=== PATIENT | male | born 1970 | race Caucasian/White ===

== ENCOUNTER 2021-08-21 09:46 | Day surgery (SDC) | payer OTHER, SELFPAY ==
[2021-08-21] MEDS: Lactated Ringers 1,000 ML 100 ML IV (10:00)
[2021-08-21 10:34] VITALS: BP 122/78; PULSE 66; RESP 16; TEMP 36.9; O2SAT 96; BMI 23.6
--- NOTE | 2021-08-21 11:24 | HP.PCM_ITS ---
History and Physical Date of Admission: 08/21/21 HISTORY AND PHYSICAL ? Jermaine Horton 1970 ? ? REFERRING PHYSICIAN: Kyree Graham MD ? CHIEF COMPLAINT: Consult (Consult inguinal hernia) ? HPI: Jermaine is a 51 year old male with a complaint of a bulge in his left inguinal region. The patient notes discomfort in this area with lifting. The symptoms have maintained, over the past 16 months. ? Dr. Robbins performed an open left inguinal hernia repair on him in the past. ? The patient notes no symptoms of bowel obstruction and denies nausea or vomiting. The patient was seen by his primary care physician who felt the patient has a hernia. Jermaine was referred for evaluation and treatment. ? The patient is being seen by me today at the request of Dr. Kyree Graham MD for my opinion and advice regarding Unilateral recurrent inguinal hernia without obstruction or gangrene Screening for colon cancer. ? ? PAST MEDICAL HISTORY PAST MEDICAL HISTORY Diagnosis Date ? Fracture cervical vertebra-closed (HCC) 1990 ? C6-7 and T1 ? Hyperlipidemia ? ? Seasonal allergies ? ? Urinary calculus, unspecified 2002 ? Renal stones ? ? PAST SURGICAL HISTORY PAST SURGICAL HISTORY Procedure Laterality Date ? PAST SURGICAL HISTORY OF ? 10/24/1990 ? cervical fusion with bone graft ? REPAIR ING HERNIA,5+Y/O,REDUCIBL Left ? CURRENT MEDICATIONS Current Outpatient Medications Medication Sig ? multivitamin tablet Take 1 tablet by mouth once daily. ? No current facility-administered medications for this visit. ? ? ALLERGIES: Latex and Penicillins ? PERSONAL HISTORY: SOCIAL HISTORY Social History ? Tobacco Use ? Smoking status: Never Smoker ? Smokeless tobacco: Never Used Substance Use Topics ? Alcohol use: Yes ? ? Comment: occasional weekend ? Drug use: No ? FAMILY HISTORY: FAMILY HISTORY FAMILY HISTORY Problem Relation Age of Onset ? None Mother ? ? Arthritis Mother ? ? Coronary Artery Disease Father ? ? Diabetes Father ? ? Heart Father ? ? CHF ? Hypertension Father ? ? Coronary Artery Disease Paternal Grandmother ? ? Heart Paternal Grandmother ? ? CHF ? Hypertension Paternal Grandmother ? ? ? REVIEW OF SYMPTOMS: The review of systems data was entered by the nurse and reviewed by me ? Nursing Notes: Sagrario Barrett LPN 07/14/2021 9:46 AM Signed REVIEW OF SYSTEMS: General: The patient denies fatigue, denies weight loss, denies weight gain, denies feeling hot, and denies feelings of cold. Eyes: The patient denies glaucoma, denies eye injury/surgery, wears glasses or contacts. Ear/Nose/Throat: The patient NOTES allergies, denies hayfever, denies ear infections, and denies bloody noses. Cardiovascular: The patient denies chest pain, denies heart disease, denies high blood pressure,denies cardiac stent, denies prior heart attack, denies irregular heart beat, NOTES high cholesterol, denies poor circulation, denies heart failure, other cardiac issues, denies claudication, denies cold feet, denies peripheral arterial stent. Respiratory: The patient denies tuberculosis, denies pneumonia, denies frequent cough, denies pulmonary embolism, denies shortness of breath, and denies coughing up blood. Gastrointestinal: The patient denies difficulty swallowing, denies acid reflux, denies ulcers, denies vomiting, denies jaundice/hepatitis, denies gall bladder problems, denies black or tarry stools, denies hemorrhoids, denies bleeding from rectum, denies diverticulitis, denies constipation, denies diarrhea, denies loss of stool control, and denies hernias. Kidney/Bladder: The patient NOTES kidney stones, denies urine infections, and denies bloody urine. Skin: The patient denies a history of skin cancer, denies bleeding/changing moles, and denies a history of skin rash. Neurologic: The patient denies a history of epilepsy/convulsions, denies headaches, denies head/spinal injuries, and denies stroke/TIA. Psychiatric: The patient denies psychiatric medications, denies depression, and denies voices, denies substance abuse. Endocrine: The patient denies thyroid disorders, denies diabetes, and denies hormonal problems. Hematologic: The patient denies a history of bruising, denies bleeding, and denies anemia, denies blood clots. Infections: The patient denies a history of measles and mumps, denies r heumatic fever, and denies sexually transmitted diseases. Musculoskeletal: The patient NOTES back pain/injury, NOTES back problems, denies sciatica, denies knee/foot trouble, denies arthritis, or denies gout. ? ? When was patient's last Mammogram screening? N/A ? Last Colonoscopy: Unknown ? Sagrario Barrett LPN ? PHYSICAL EXAMINATION: ? General: The patient is 51 year old male, well nourished, well hydrated in no acute distress. The patient is oriented to time, place, and person. ? VITALS: Pulse 72, temperature 36.7 ?C (98 ?F), height 185.4 cm (6' 1), weight 81.8 kg (180 lb 6.4 oz), SpO2 98 %. Body mass index is 23.8 kg/m?. ? HEENT: Normal cephalic, ataumatic, pupils are equally round, sclera are anicteric, mucous membranes are moist, oropharynx is clear. Neck has no masses, asymmetry or lymphadenopathy. Thyroid is unremarkable. ? Respiratory: Clear to auscultation and percussion. Normal respiratory excursion and pattern. ? Cardiac: Examination is regular rate and rhythm. ? Abdominal exam: Soft, nontender, with no palpable masses. No hepatosplenomegaly. A moderate reducible left inguinal hernia, no right inguinal or umbilical hernias are noted ? Rectal exam: exam deferred ? Extremities: no clubbing, cyanosis or edema. No adenopathy. ? Other: ? ? LABORATORY VALUES: As Noted ? RADIOLOGIC STUDIES: As Noted ? Assessment IMPRESSION: left inguinal hernia ? PLAN: My plan is to perform a robotic assisted laparoscopic left inguinal hernia repair with mesh. The planned surgical procedure was discussed extensively with the patient. The risks, benefits, anticipated outcomes and possible complications were mentioned. Jermaine holbrookands that all hernia repair surgery has a chance of recurrence and/or chronic post operative pain. My staff has also explained the procedure in understandable terms and the patient was given the option to take printed material concerning the planned procedure. The patient had the opportunity to ask questions concerning the planned procedure. The patient freely consents to the planned procedure. ? My findings have been communicated to Dr. Kyree Graham MD via shared medical record. This note will be forwarded to Dr. Kyree Graham MD. ? Diagnoses: (K40.91) Unilateral recurrent inguinal hernia without obstruction or gangrene (Z12.11) Screening for colon cancer ? Anticipated CPT Code: laparoscopic left inguinal hernia repair with mesh - 82824-528 ? Anticipated Anesthetic: General ? Patient weight: Pulse 72, temperature 36.7 ?C (98 ?F), height 185.4 cm (6' 1), weight 81.8 kg (180 lb 6.4 oz), SpO2 98 %. BMI: Body mass index is 23.8 kg/m?. ? Planned antibiotic: clindamycin 900mg IVPB industrial technology education teacher to [place] ? SCDs needed - Yes Return to Clinic: The patient is instructed to follow-up with me 1 week post operatively. ? COVID (Procedure Consent) Procedure Criteria ? Procedure Criteria: Yes Elective The surgeon/proceduralist and patient have discussed in detail the risk of exposure to and/or potential harm posed by the COVID-19 virus with having a surgery/procedure at this time versus the risk of? delaying the surgery/procedure. It is not possible to know either the risk of delaying the surgery or procedure or chance of getting an infection with perfect accuracy, but a joint decision was made between the patient and the surgeon/proceduralist ?to proceed at this time with the scheduled s urgery/procedure as indicated on the consent form. ? ? Dominic Kaur III, MD .I have re-examined the patient. There are no clinical changes since date of exam.
[2021-08-21] MEDS: Bupivacaine Mpf 0.5% 30 ML VIAL (13:20)
--- NOTE | 2021-08-21 13:30 | OP.PCM_ITS ---
Problems Associated Problem List Diagnoses (1) Recurrent unilateral inguinal hernia: Report of Operation Date of Procedure: 08/21/21 Pre-Operative Diagnosis: Recurrent left inguinal hernia Post-Operative Diagnosis: Same Surgery/Procedure Performed:: Robotically assisted laparoscopic repair of recurrent left inguinal hernia Surgeon: Dominic Kaur six pack loader operator: Diane Petersen Type of Anesthesia: General Anesthesiologist: Oscar Sharif Estimated Blood Loss (mL): < 25 cc Description of Procedure: Patient was brought into the operating room. Placed in the supine position. Under excellent general anesthetic the abdomen was sterilely prepped and draped in usual fashion. Local was injected supraumbilically dissection was carried down to the fascia the fascia grasped with Olga varies needle was placed inside the abdomen the abdomen was insufflated to 15 torr. #8 trocar was placed without difficulty. It was flank by 2 other #8 trochars both placed under direct visualization. There was no injury to underlying structures. Patient was placed in the headdown. X I robot was brought in and docked appropriately. Grasper was placed in the left hand mariella were placed in the right hand. I scored the peritoneum on the left side a very large recurrent hernia was identified. I came down to the pubic tubercle then came laterally dissected the mesh off of the plug. He had a lot of oozing with this and I did not feel comfortable removing the mesh for fear of getting into some significant bleeding in the muscle so I left it. I brought the hernia sac all the way down it traveled all the way down into the scrotum. I dissected further laterally and inferiorly. I fashioned a medium ProGrip mesh into the wound it laid completely flat and was actually quite nice. The defect had excellent coverage. I would closed the peritoneum with a 3 OV lock. I had a mesenteric rent in the peritoneum I closed that also with a V-Loc covering the mesh completely so it would not be exposed to any bowel. Trochars were removed under direct visualization good with stasis was noted. Skin incisions were closed with subcuticular stitches of 4-0 Monocryl. Steri-Strips were applied sterile dressings were applied and the patient tolerated the procedure well. Admit VTE Documentation VTE Present on Admission: No VTE Mechan Device Prophylaxis: SCD's VTE Pharm Prophylaxis ordered?: No Reason prophylaxis not ordered:: Treatment Not Indicated
--- NOTE | 2021-08-21 13:30 | EX.PCM.DISCH ---
Discharge Instructions Procedure Hernia Diet Discharge Diet: Light diet - advance as tolerated Activity Discharge Activity: Return to Normal Activity, May Drive (when you are no longer taking narcotic pain medications.) and May Shower (with the bandage in place 1-2 days after surgery.) Lifting Restrictions: 20 pounds for 8 weeks. Additional Activity Instructions:: Climbing stairs is fine, walking is encouraged. Sitting in bed may be uncomfortable. Sitting up using your lateral muscles (sitting up sideways) is usually more comfortable. Do not drive, work heavy equipment of sign legal documents for 24 hours. If your hernia repair was an ingunial repair, you may have scrotal swelling, an ice pack and/or athletic support can provide more comfort. Pain medications may cause nausea, you should typically eat light foods as you take your pain medications. Pain medications may also cause constipation. If you have difficulty with this, discuss with your doctor. Dressing / Incision Call your doctor if your incision/area has: Continuous Slow Oozing, Sudden Increased Bleeding, Increased Pain/ Swelling, Increased Redness and Foul Smelling Discharge Call your doctor if you observe: Fever of 101 or Higher Suture Line Care: Avoid Pulling/Pushing and Avoid Pinching/Bending Additional Dressing/Incision Instructions:: Leave the operative bandage on for 2-3 days. When you remove the bandage, leave the steri-strips on place until your follow up appointment or they fall off. Follow Up Care Please Follow Up With: Mohini Marquez PA-C When: Call office to schedule an appointment to be seen in 7 days. Test Results: Test results from this visit will be discussed in further detail at your follow-up appointment, if applicable. Discharge Plan Admission Attending Provider: Domiinc Kaur Primary Care Provider: Kyree Graham Discharge Orders/Prescriptions Prescriptions: New oxycodone-acetaminophen [Endocet] 5-325 mg tablet 1 tab PO Q6H PRN (Reason: pain) 5 Days Qty: 20 RF: 0 Continued multivitamin Tablet 1 tab PO DAILY RF: 0 Other Ambulatory Orders: 12 Lead EKG (Routine) Timeframe: [id number] Facility: [facility] - Location: Cardiovascular Services Ordered By: Dr. Levi Bryant Referrals / Follow Up: Kyree Graham MD [Primary Care Provider] - Mohini Marquez PA-C [PHYSICIAN JUNIOR LEGAL SECRETARY] - Disposition Disposition (needs filled in before D/C Order can be placed): Home, Self Care
[2021-08-21 13:32] VITALS: BP 122/78; BP 123/90; PULSE 80; RESP 16; TEMP 36.4; O2SAT 98
[2021-08-21 13:45] VITALS: BP 122/78; BP 133/89; PULSE 71; RESP 16; O2SAT 98
[2021-08-21 13:59] VITALS: BP 113/76; BP 122/78; PULSE 64; RESP 16; TEMP 36.1; O2SAT 95
[2021-08-21 15:16] VITALS: BP 104/67; BP 122/78; PULSE 65; RESP 16; TEMP 36.4; O2SAT 96
--- NOTE | 2021-08-27 09:11 | EKG12_ITS ---
Test Reason : PREOP Blood Pressure : / mmHG Vent. Rate : 064 BPM Atrial Rate : 064 BPM P-R Int : 128 ms QRS Dur : 082 ms QT Int : 400 ms P-R-T Axes : -05 018 007 degrees QTc Int : 412 ms Normal sinus rhythm Septal infarct , age undetermined Abnormal ECG Confirmed by YANET WELLS, LEVY ([id number]), story editor CHERIE HENNESSY ([id number]) on 08/27/2021 9:12:37 AM Referred By: Dominic Kaur Confirmed By:LEVY HOLT MD
== END 2021-08-21 15:22 | disposition home or self-care (01) ==
LOC: SDC 09:49 → AC 09:52
PROVIDERS: PCP Family Medicine; Referring Provider Surgery; Visit Provider Surgery
PROC: 0YQ64ZZ Repair Left Inguinal Region, Percutaneous Endoscopic Approach (ICD-10-PCS; CPT 49651; principal; 2021-08-21 11:40)
DX: K40.91 Unilateral inguinal hernia, without obstruction or gangrene, recurrent (principal); E78.5 Hyperlipidemia, unspecified
CPT/HCPCS: 00840; 49651; S2900; 93005; J7120; J2405

== ENCOUNTER 2022-07-11 11:20 | Emergency (ER) | payer OTHER, SELFPAY ==
[2022-07-11 11:21] VITALS: BP 140/88; PULSE 87; RESP 16; TEMP 36.5; O2SAT 97; BMI 23.7
[2022-07-11 11:44] VITALS: BP 140/88; PULSE 87; RESP 16; TEMP 36.5; O2SAT 97
--- NOTE | 2022-07-11 11:53 | EX.ED.GUMALE ---
HPI History of Present Illness Chief Complaint: Flank Pain Narrative Narrative: 52-year-old male with with history of kidney stones in the past presenting with bilateral flank pain. He states this started a couple of days ago when he was working in the sun and he felt chills on his back. Patient states he developed body aches. He states he immediately felt like it was kidney stones that he had not had in 20 years. He went to the urgent care and had a urinalysis completed which showed blood in the urine without overwhelming evidence of infection. Patient was sent for ultrasound of the kidneys, ureters, bladder and this was normal and showed no stones or evidence of pyelonephritis. Patient was placed on Macrobid and Pyridium and has been taking this. He has not had dysuria or hematuria. Initially had urinary frequency and he was not drinking a ton of water. He states that since that time he has been drinking a lot of water and a lot of cranberry juice. He has been tested for COVID 4 times this week. His highest fever was 103.5. He has taken Tylenol and ibuprofen and this does help with the fever. He currently is pain-free and nausea free. He does not have any diarrhea or constipation. He does state he has a very mild cough but is not short of breath or having chest pain. [facility] Medical History Alcohol use Injury of head and neck Wears glasses Home Medications multivitamin 1 tab PO DAILY 08/14/21 [History Last Taken Unknown] oxycodone-acetaminophen 5 mg-325 mg tablet (Endocet) 1 tab PO Q6H PRN pain 5 days #20 tabs 08/21/21 [Rx Last Taken Unknown] levofloxacin 750 mg tablet 750 mg PO DAILY #4 tabs 07/11/22 [Rx Last Taken Unknown] Allergy/AdvReac Type Severity Reaction Status Date / Time latex Allergy Other Verified 07/11/22 11:25 Penicillins Allergy Unknown Verified 07/11/22 11:25 Surgical History Hx of inguinal hernia repair Hx of neck surgery Social History Smoking Status: Never smoker ROS ROS ED Constitutional Constitutional ED: Reports chills, fever(s) and sweats Eyes Eyes: Denies change in vision ENT ENT ED: Denies rhinorrhea or sore throat Cardiovascular Cardiovascular: Denies chest pain or palpitations Respiratory/Chest Respiratory/Chest: Reports cough; Denies dyspnea or dyspnea on exertion Gastrointestinal Gastrointestinal: Reports nausea; Denies constipation, diarrhea or vomiting Genitourinary Genitourinary ED: Reports hematuria and urinary frequency Musculoskeletal Musculoskeletal: Reports back pain Integumentary Denies abscess or rash Neurologic Neurologic: Reports headache(s); Denies paresthesias Psychiatric Psychiatric: Denies anxiety or depression EXAM Physical Exam Const Vital Signs: 07/11/22 11:21 07/11/22 11:44 07/11/22 11:44 Temperature 97.7 F L 97.7 F L Temperature Source Temporal Temporal Pulse Rate 87 87 Respiratory Rate 16 16 Respiratory Effort Normal Non-Labored Blood Pressure 140/88 H 140/88 H Blood Pressure Mean 105 105 Pulse Ox 97 97 Oxygen Delivery Method Room Air Room Air Positive well nourished General Appearance ED: NAD; Negative for pallor HEENT Reports moist mucous membranes normocephalic Eyes PERRL and EOMs intact bilaterally General Eye ED: Negative for pale conjunctiva Neck no lymphadenopathy Resp normal respiratory effort and clear to auscultation bilaterally Auscultation: Negative for rales, rhonchi or wheezes Cardio regular rate and regular rhythm GI non-tender, non-distended and no masses Bladder / Kidney Exam: CVA tenderness right and left Back/Spine Back/Spine Narrative: No midline spinal tenderness of the thoracic or lumbar spine. Extremity normal to inspection Neuro oriented x3, CN's II-XII intact bilaterally, moves all extremities, no focal motor deficits and no sensory deficits noted Sensorium / Orientation: alert Motor Exam: strength 5/5 throughout Psych mental status grossly normal Attitude: No agitated Mood & Affect: Negative for anxious or tearful Skin General Skin Exam: Negative for jaundice or pallor MDM MDM MDM Narrative Medical decision making narrative: Patient presenting with chills, body aches, fevers. He is afebrile here. He has no pain here except for some mild CVA tenderness bilaterally. His urinalysis is negative for infection but there is some occult blood. He has a history of kidney stones. CBC and CMP are normal. I obtained a noncontrast CT of the abdomen pelvis to rule out kidney stone even though he is already had ultrasounds of his kidneys, ureters, bladder's. This does not show any acute intra-abdominal process but does identify a left lower lobe pneumonia. This is likely the source of the patient's fevers. I cannot explain why he has the flank pain. Patient will be treated with antibiotics. Return precautions discussed. First dose given in ER. Impression: 1. Left lower lobe pneumonia 2. Febrile illness Lab Data Attestation: I reviewed the patient's lab results. Labs: Laboratory Results - last 24 hr 07/11/22 07/11/22 07/11/22 11:42 11:42 12:04 WBC 7.2 RBC 4.92 Hgb 15.5 Hct 46.5 MCV 94.5 H MCH 31.5 MCHC 33.3 RDW Std Deviation 44.6 H RDW Coeff of Lori 12.9 Plt Count 237 MPV 10.0 Immature Gran % (Auto) 0.400 Neut % (Auto) 75.5 H Lymph % (Auto) 14.8 L [place] % (Auto) 8.2 Eos % (Auto) 0.7 Baso % (Auto) 0.4 Absolute Neuts (auto) 5.4 Absolute Lymphs (auto) 1.06 Nucleated RBC % 0 Sodium 137 Potassium 3.6 Chloride 100 Carbon Dioxide 28.0 Anion Gap 9 BUN 14 Creatinine 0.97 Estim Creat Clear Calc 99.53 Est GFR (MDRD) Af Amer 104 Est GFR (MDRD) Non-Af 86 BUN/Creatinine Ratio 14.4 Glucose 107 H Calcium 9.2 Total Bilirubin 0.50 AST 33 ALT 55 Alkaline Phosphatase 76 Total Protein 7.9 Albumin 3.2 Globulin 4.7 H Albumin/Globulin Ratio 0.7 L Lipase 134 Urine Color Yellow Urine Clarity Sl. Cloudy Urine pH 6.0 Ur Specific [place] 1.020 Urine Protein 30 H Urine Glucose (UA) Normal Urine Ketones 5 H Urine Occult Blood 10 H Urine Nitrite Negative Urine Bilirubin Negative Urine Urobilinogen 1 H Ur Leukocyte Esterase Negative Urine RBC 0 SEEN Urine WBC 0 SEEN Ur Squamous Epith Cells 0 SEEN Amorphous Sediment 1+ Urine Bacteria 0 SEEN Urine Mucus 0 SEEN Radiography Diagnostic Testing: Clinical Impression(s) from Imaging Studies Abdomen/Pelvis CT 07/11/22 12:22 IMPRESSION: 1. No renal or ureteral stone. 2. Left lower lobe pneumonia. Electronically Signed: Tima Bills MD at 12:52 EDT , Discharge Plan Triage Chief Complaint: Flank Pain ED Provider: Rui Yanes Dx/Rx/DC Orders Instructions: ED Pneumonia (Adult) Prescriptions: New levofloxacin 750 mg tablet 750 mg PO DAILY Qty: 4 0RF No Action multivitamin Tablet 1 tab PO DAILY oxycodone-acetaminophen [Endocet] 5-325 mg tablet 1 tab PO Q6H PRN (Reason: pain) 5 Days Qty: 20 0RF Primary Care Provider: Kyree Graham Referrals: Kyree Graham MD [Primary Care Provider] - Disposition Disposition: Home, Self Care
[2022-07-11] MEDS: 0.9% Normal Saline 1,000 ML 1000 ML IV (12:04)
[2022-07-11 12:10] LABS: Bacteria 0 SEEN /hpf (None Seen); Mucous, Urine 0 SEEN /hpf (<or=2+); Red Blood Cells-Urine 0 SEEN /hpf (0-5); Squamous Epithelial Cells - UA 0 SEEN /hpf (0-5); White Blood Cells 0 SEEN /hpf (0-5)
[2022-07-11 12:11] LABS: Color, Urine Yellow (Yellow); Glucose, Dipstick Normal (Normal); Ketone-Dipstick 5 mg/dl (Negative); Leukocyte Esterase-Dipstick Negative /ul (Negative); Nitrite-Dipstick Negative (Negative); Occult Blood-Urine 10 /ul (Negative); Protein-Dipstick 30 mg/dl (Negative); Urine Bilirubin Dipstick Negative (Negative); Urine Clarity Sl. Cloudy (Clear); Urine Urobilinogen 1 mg/dl (Normal)
[2022-07-11 12:11] LABS: Absolute Lymphocyte Count 1.06 X10^3/uL (0.83-4.51); Absolute Neutrophil Count 5.4 X10^3/uL (2.0-7.7); Basophil# 0.03 X10^3/uL; Basophil% 0.4 % (0-1); Eosinophil# 0.05 X10^3/uL; Eosinophils% 0.7 % (0-5); Hematocrit 46.5 % (40-54); Hemoglobin 15.5 g/dL (13.0-16.5); Lymphocyte # 1.06 X10^3/ul (0.83-4.51); Lymphocyte % 14.8 % (19-41); Mean Corp Hgb Conc 33.3 g/dL (32-36); Mean Corpuscular Hgb 31.5 pg (27.0-32.0); Mean Corpuscular Volume 94.5 fL (80-94); Monocyte# 0.59 X10^3/uL; Monocyte% 8.2 % (0-10); NRBC Flagged by Analyzer 0 % (0-5); Neutrophil % 75.5 % (47-70); Platelet Count 237 K/mm3 (150-450); RBC Distribution Width CV 12.9 % (11.6-14.6); RBC Distribution Width SD 44.6 fl (35.1-43.9); Red Blood Count 4.92 M/mm3 (4.6-6.2); White Blood Count 7.2 K/mm3 (4.4-11.0)
[2022-07-11 12:20] LABS: Amorphous Sediment 1+
--- NOTE | 2022-07-11 12:22 | CT_ITS ---
STUDY: CT ABDOMEN AND PELVIS WITHOUT CONTRAST REASON FOR EXAM: Male, 52 years old. flank pain RADIATION DOSAGE (If Supplied By Facility): CTDIvol = ( 7.11 ) mGy, DLP = ( 374.72 ) mGycm TECHNIQUE: Transaxial images were obtained from the dome of the diaphragm to the symphysis pubis without oral contrast, and without intravenous contrast. Sagittal and coronal images were reconstructed. Individualized dose optimization techniques were used for this CT. COMPARISON: None. FINDINGS: Alveolar density in the lower left lung consistent with left lower lobe pneumonia. The visualized portions of the heart are within normal limits. Normal liver. Normal gallbladder and extrahepatic biliary system. Normal spleen. Normal pancreas. Normal bilateral adrenal glands. Normal right kidney. Normal left kidney. There is a small hiatal hernia. Normal small intestine. There are multiple colonic diverticula consistent with diverticulosis. The appendix is visualized and appears normal. Normal abdominal aorta. Normal inferior vena cava. Normal retroperitoneum. Normal urinary bladder. There are prostatic calcifications. Small bilateral inguinal hernias containing fat. Small umbilical hernia containing fat. Normal osseous structures. CT/Abdomen/Pelvis without Cont IMPRESSION: 1. No renal or ureteral stone. 2. Left lower lobe pneumonia. Electronically Signed: Tima Bills MD at 12:52 EDT ,
[2022-07-11 12:26] LABS: ALB/GLOB Ratio 0.7 RATIO (0.9-2.4); AST(SGOT) 33 U/L (15-37); Alanine Aminotransfer ALT/SGPT 55 U/L (16-61); Albumin, Serum 3.2 g/dL (3.2-5.0); Alkaline Phosphatase 76 U/L (45-117); Anion Gap 9 (5-15); BUN 14 mg/dL (7-18); BUN/Creat Ratio 14.4 RATIO (10-20); Calcium,Total 9.2 mg/dL (8.5-10.1); Chloride 100 mmol/L (98-107); Creatinine, Serum 0.97 mg/dL (0.70-1.30); EST Glomerular Filtration Rate 86 mL/min (>60); Est Glom Filt Rate - Afr Amer 104 mL/min (>60); Estimated Creatinine Clearance 99.53 ml/min; Globulin 4.7 g/dL (2.2-4.2); Glucose 107 mg/dL (74-106); Lipase 134 U/L (73-393); Potassium 3.6 mmol/L (3.5-5.1); Protein, Total 7.9 g/dL (6.4-8.2); Sodium Level 137 mmol/L (136-145)
[2022-07-11] MEDS: levoFLOXacin 750 MG Tablet PO (13:45)
[2022-07-11 13:52] VITALS: BP 132/82; PULSE 87; RESP 18; O2SAT 98
== END 2022-07-11 13:52 | disposition home or self-care (01) ==
PROVIDERS: Emergency Provider Student in an Organized Health Care Education/Training Program; PCP Family Medicine; Visit Provider Student in an Organized Health Care Education/Training Program
DX: J18.9 Pneumonia, unspecified organism (principal); R35.0 Frequency of micturition; R31.9 Hematuria, unspecified; Z87.442 Personal history of urinary calculi
CPT/HCPCS: 74176; 80053; 81001; 83690; 85025; 96360; 99284; J7030; A4216